=== PATIENT | male | born 1960 | race Caucasian/White ===

== ENCOUNTER → 2022-11-24 12:52 | Outpatient (BNVA) | payer SELFPAY | PROVIDERS: Family Provider Family Medicine; PCP Family Medicine; Visit Provider Nurse Practitioner Family | DX: M25.561 Pain in right knee (principal); M25.562 Pain in left knee; R60.0 Localized edema | CPT/HCPCS: 86038; 86140; 86618; 86666; 86757 ==

== ENCOUNTER 2024-10-28 16:30 | Emergency (ER) | payer MEDICAID, SELFPAY ==
[2024-10-28] VITALS (34 sets, daily range): BP systolic 103–144; BP diastolic 58–76; PULSE 93–122; RESP 15–38; TEMP 39.1; O2SAT 93–98; BMI 19.0
--- NOTE | 2024-10-28 16:39 | XRR_ITS ---
PROCEDURE INFORMATION: Exam: XR Chest Exam date and time: 10/28/2024 4:57 PM Age: 64 years old Clinical indication: Shortness of breath; Additional info: SOB, pneumonia, tachypneic TECHNIQUE: Imaging protocol: Radiologic exam of the chest. Views: 1 view. COMPARISON: No relevant prior studies available. FINDINGS: Lungs: There is dense consolidation of the entire upper half of the left lung with associated volume loss. There is mediastinal shift to the left. The right lung is clear. A 2 cm nodule is noted in the left lower lung field. Pleural spaces: Unremarkable. No pleural effusion. No pneumothorax. Heart/Mediastinum: See Lungs finding. Bones/joints: Unremarkable. XR/XR chest 1V portable [id number] IMPRESSION: Extensive left lung consolidation and atelectasis with separate lung nodule. Most likely represents lung neoplasm.
--- NOTE | 2024-10-28 16:46 | W.ED.SOB ---
Documented by User: CIERA Gong 10/28/24 16:50 HPI - SOB/Dyspnea General: Chief Complaint: Shortness of Breath/Dyspnea Stated Complaint: near syncope Time Seen by Provider: 10/28/24 16:31 Source: patient, family and EMS Mode of arrival: EMS Limitations: no limitations History of Present Illness: HPI Narrative: Patient is a 64-year-old male with extensive past medical history who presents to the Emergency Department via ambulance due to worsening shortness of breath and a reported presyncopal episode prior to arrival. Ambulance reportedly was called by patient's son. Patient arrives on 4 L of oxygen at this time, does not usually use oxygen at home. Reportedly a month ago was diagnosed with a bacterial pneumonia, it appears he was on doxycycline for this and notes that he has steadily gone downhill in terms of his breathing and weakness. States that he has been unable to bring a glass of water up to his mouth to take a drink due to the amount of weakness. At this time stating he feels much more comfortable as he is seated up, also has a history of congestive heart failure reportedly. He is not reporting any chest pain or coughing. EMS did report that he was hypotensive and tachycardic, they began line and started him on fluids and at bedside systolic blood pressure noted to be 100. Bedside temperature 102.2 at this time. Patient's family is on the way to the emergency department and will provide further history, as patient ultimately does not have full recollection of what happened today but believes he just got so weak that he was starting to fall. He does live at home by himself. elicited complaint: shortness of breath Pertinent past history: congestive heart failure Onset (ago): month(s) (1) Context: recent illness (Diagnosis of bacterial pneumonia) Timing: constant and progressively worsening Severity: severe Exacerbating factors: lying flat and exertion Relieving factors: oxygen Associated symptoms: Reports fever(s); Deny abdominal pain, chest pain, lightheadedness, nausea, palpitations or vomiting Treatment prior to arrival: oxygen and other (IV fluids) Related Data Previous Rx's ?Medication ?Instructions ?Recorded indomethacin 50 mg capsule 50 mg PO BID #30 caps 11/24/22 doxycycline hyclate 100 mg capsule 100 mg PO BID 14 days #28 caps 12/04/22 Allergies Allergy/AdvReac Type Severity Reaction Status Date / Time No Known Allergies Allergy Unverified 11/24/22 12:34 Review of Systems General: Reports: 10 or more systems reviewed and unremarkable except in HPI and below Const: Reports: fever(s); Denies: chills or fatigue Eyes: Denies: change in vision ENMT: Denies: throat pain, ear or mastoid pain or nasal discharge Card: Reports: pre-syncope; Denies: chest pain, palpitations, swelling of feet/ankles or lightheadedness Resp: Reports: dyspnea; Denies: productive cough or wheezing GI: Denies: abdominal pain, nausea, vomiting, diarrhea or constipation Musc: Denies: neck pain, back pain or joint pain Skin/Breast: Denies: rash Neuro: Reports: weakness in extremities; Denies: headache(s) or numbness in extremities PFSH ED PFSH: Medical History 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[place]as[place]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) Physical Exam Const: COMMON NORMALS: patient oriented x3, no limitations and alert GENERAL APPEARANCE: ill appearing NUTRITIONAL APPEARANCE: thin ORIENTATION/CONSCIOUSNESS: Yes awake OTHER: Mild respiratory distress at this time HENMT: COMMON NORMALS: normocephalic and atraumatic HEAD & SCALP: normocephalic and atraumatic OTHER: Dry oral mucosa Eye: COMMON NORMALS: Equal, round and reactive pupils present, EOMs intact bilaterally and conjunctivae normal CONJUNCTIVA: Yes conjunctivae normal PUPIL: Yes Equal, round and reactive pupils present Neck/C-Spine: COMMON NORMALS: full ROM and no JVD Chest: COMMONS NORMALS: normal inspection of the chest Resp: OTHER: Tachypneic, use of abdominal muscles. Rhonchi left lower lobe, diminished breath sounds throughout. Cardio: COMMON NORMALS: no JVD, regular rhythm, No gallops present (Cardio), No murmurs present (Cardio) and No rub (Cardio) RATE: tachycardic RHYTHM: regular rhythm GI: COMMON NORMALS: Normal to inspection, nondistended, normoactive bowel sounds present, Soft to palpation and non-tender PALPATION: Yes Soft to palpation Extremity: COMMON NORMALS: normal to inspection, full ROM, no clubbing, cyanosis or edema and no pedal edema Neuro: COMMON NORMALS: patient oriented x3, moves all extremities, no focal motor deficits and no sensory deficits noted SENSORIUM/ORIENTATION: Yes alert Skin: COMMON NORMALS: no rashes or lesions noted GENERAL SKIN EXAM: no rashes or lesions noted Course Vital Signs: Vital signs: Vital Signs Temperature 102.3 F H 10/28/24 16:31 Pulse Rate 108 H 10/28/24 19:09 Respiratory Rate 16 10/28/24 19:09 Blood Pressure 117/69 10/28/24 19:09 Pulse Oximetry 95 10/28/24 19:09 Oxygen Delivery Me thod Room Air 10/28/24 19:09 Oxygen Flow Rate 3 10/28/24 17:52 MDM - SOB/Dyspnea Lab Data 10/28/24 17:49 10/28/24 17:49 Labs/Radiology: Radiology Impressions Chest X-Ray 10/28/24 16:39 IMPRESSION: Extensive left lung consolidation and atelectasis with separate lung nodule. Most likely represents lung neoplasm. Chest/Abdomen/Pelvis CT 10/28/24 17:19 IMPRESSION: 1. Large left upper lobe lung mass measuring 13.1 ?? 9.0 ?? 25.4 cm with extension into the left perihilar region, encasement and near-complete occlusion of the left superior lobar bronchus, and involvement of the left anterior segmental artery. Findings are highly concerning for a primary lung neoplasm. 2. Multiple right lung nodules up to 1.1 cm and a posterior left lower lobe nodule measuring 1.7 cm, likely metastatic disease, including a satellite lesion. 3. Extensive mediastinal lymphadenopathy, including a 3.8 cm left paratracheal node appearing contiguous with the primary mass, 1.9 cm right paratracheal node, and prevascular nodes up to 1.1 cm. 4. Diffuse centrilobular emphysema. 5. Leftward mediastinal shift, likely due to mass effect from the dominant lung mass. 6. Small pericardial effusion. 7. No pulmonary embolism, pleural effusion, or pneumothorax. IMPRESSION: 1. Multiple hepatic metastatic lesions with the largest in segment 6 measuring 2.5 centimeters, and segment 4 measuring 2.4 centimeters. 2. Hepatomegaly. Laboratory Results WBC 16.94 10^3/uL (3.29-11.43) H 10/28/24 17:49 RBC 3.37 10^6/uL (3.85-5.65) L 10/28/24 17:49 Hgb 9.80 g/dL (11.27-16.99) L 10/28/24 17:49 Hct 31.4 % (37-53) L 10/28/24 17:49 MCV 93.2 fl (82-101) 10/28/24 17:49 MCH 29.1 pg (27-33) 10/28/24 17:49 MCHC 31.2 g/dL (30-55) 10/28/24 17:49 RDW 15.7 % (12.1-15.1) H 10/28/24 17:49 Plt Count 270 10^3/cmm (157-399) 10/28/24 17:49 MPV 9.0 fL (7.4-10.4) 10/28/24 17:49 Neut % (Auto) 83.7 % 10/28/24 17:49 Lymph % (Auto) 4.3 % 10/28/24 17:49 [place] % (Auto) 10.6 % 10/28/24 17:49 Eos % (Auto) 0.1 % 10/28/24 17:49 Baso % (Auto) 0.4 % 10/28/24 17:49 Neut # (Auto) 14.19 10^3/uL (1.8-7.7) H 10/28/24 17:49 Lymph # (Auto) 0.7 10^3/uL (0.8-4.8) L 10/28/24 17:49 [place] # (Auto) 1.8 10^3/uL (0.2-0.9) H 10/28/24 17:49 Eos # (Auto) 0.0 10^3/uL (0.0-0.8) 10/28/24 17:49 Baso # (Auto) 0.1 10^3/uL (0.0-0.1) 10/28/24 17:49 Nucleated RBC % (auto) 0 % 10/28/24 17:49 Nucleated RBCs # 0.0 /100WBC 10/28/24 17:49 Specimen Type Arterial 10/28/24 16:46 Sample Site Radial, left 10/28/24 16:46 ABG pH 7.46 (7.35-7.45) H 10/28/24 16:46 ABG pCO2 34.1 mmHg (35-45) L 10/28/24 16:46 ABG pO2 64.8 mmHg (80.0-100.0) L 10/28/24 16:46 ABG PO2/FiO2 Ratio 180 10/28/24 16:46 ABG HCO3 24.1 mmol/L (22-26) 10/28/24 16:46 ABG O2 Saturation 93.9 10/28/24 16:46 ABG Base Excess 0.5 mmol/L (-2.0-2.0) 10/28/24 16:46 Franco Test Pos 10/28/24 16:46 A-a O2 Gradient 19.0 mmHg (5-10) H 10/28/24 16:46 Hematocrit 32.0 % (42-52) L 10/28/24 16:46 Hgb O2 Saturation 91.0 % (95-100) L 10/28/24 16:46 Carboxyhemoglobin 2.4 %THgb (0.4-20.1) 10/28/24 16:46 Methemoglobin 0.6 % (0.4-1.5) 10/28/24 16:46 Total Hemoglobin 10.4 g/dL (14-18) L 10/28/24 16:46 Sodium 132.0 mmol/L (131-143) 10/28/24 16:46 Potassium 3.3 mmol/L (3.5-5.0) L 10/28/24 16:46 Glucose 197.0 mg/dL (70-115) H 10/28/24 16:46 Ionized Calcium 1.2 mmol/L (1.1-1.4) 10/28/24 16:46 O2 Delivery Device Nc 10/28/24 16:46 O2 Liters/Min 4.0 % 10/28/24 16:46 FiO2 36.0 % 10/28/24 16:46 Intensive Care Unit Nurse ID Cak 10/28/24 16:46 Sodium 131 mmol/L (136-145) L 10/28/24 17:49 Potassium 3.4 mmol/L (3.5-5.1) L 10/28/24 17:49 Chloride 98 mmol/L (98-107) 10/28/24 17:49 Carbon Dioxide 20 mmol/L (22-29) L 10/28/24 17:49 Anion Gap 16.4 (5-19) 10/28/24 17:49 BUN 12 mg/dL (8-23) 10/28/24 17:49 Creatinine 0.7 mg/dL (0.7-1.2) 10/28/24 17:49 GFR Calculation 113.9 mL/min (90-130) 10/28/24 17:49 Glucose 151 mg/dL (65-115) H 10/28/24 17:49 Calculated Osmolality 275 mOsm/kg (285-295) L 10/28/24 17:49 Lactic Acid 2.7 mmol/L (0.5-2.2) H 10/28/24 17:49 Calcium 7.9 mg/dL (8.5-10.5) L 10/28/24 17:49 Magnesium 1.5 mg/dL (1.7-2.3) L 10/28/24 17:49 Total Bilirubin 0.3 mg/dL (0.15-1.2) 10/28/24 17:49 AST 8 U/L (0-40) 10/28/24 17:49 ALT < 5 U/L (0-41) 10/28/24 17:49 Alkaline Phosphatase 83 U/L (40-130) 10/28/24 17:49 Troponin T Baseline 17 ng/L (0-15) H 10/28/24 17:49 NT-Pro-B Natriuret Pep 468 pg/mL (0-125) H 10/28/24 17:49 Total Protein 5.5 g/dL (6.6-8.7) L 10/28/24 17:49 Albumin 2.7 g/dL (3.5-5.2) L 10/28/24 17:49 Globulin 2.8 g/dL (1.3-4.6) 10/28/24 17:49 Procalcitonin 0.91 ng/mL (0-0.5) H 10/28/24 17:49 Adenovirus (PCR) Not detected (NOT DETECT) 10/28/24 17:15 C. pneumoniae DNA (PCR) Not detected (NOT DETECT) 10/28/24 17:15 Coronavirus 229E (PCR) Not detected (NOT DETECT) 10/28/24 17:15 Human Metapneumovir PCR Not detected (NOT DETECT) 10/28/24 17:15 Influenza A (H1) PCR Not detected (NOT DETECT) 10/28/24 17:15 Influ A (H1/09) PCR Not detected (NOT DETECT) 10/28/24 17:15 Influenza A (H3) PCR Not detected (NOT DETECT) 10/28/24 17:15 Influenza Type A (PCR) Not detected (NOT DETECT) 10/28/24 17:15 Influenza Type B (PCR) Not detected (NOT DETECT) 10/28/24 17:15 M. pneumoniae (PCR) Not detected (NOT DETECT) 10/28/24 17:15 Parainfluenza 1 (PCR) Not detected (NOT DETECT) 10/28/24 17:15 Parainfluenza 2 (PCR) Not detected (NOT DETECT) 10/28/24 17:15 Parainfluenza 3 (PCR) Not detected (NOT DETECT) 10/28/24 17:15 Parainfluenza 4 (PCR) Not detected (NOT DETECT) 10/28/24 17:15 RSV Type A (PCR) Not detected (NOT DETECT) 10/28/24 17:15 RSV Type B (PCR) Not detected (NOT DETECT) 10/28/24 17:15 Entero/Rhino (PCR) Not detected (NOT DETECT) 10/28/24 17:15 SARS-CoV-2 (PCR) Not detected (NOT DETECT) 10/28/24 17:15 Discharge Plan Discharge Patient Disposition: Xfer Short-Term Hosp Clinical Impression: Consolidation of left upper lobe of lung, Cigarette smoker, Unintended weight loss, Hemoptysis, Sepsis, Protein-calorie malnutrition, Hypomagnesemia, Mass of left lung, Cancer, metastatic to liver Condition: Stable Referrals: Taylor Macario DO [Primary Care Provider] - Print Language: Omani Coding Level of Care Code ED Caramel Cutter Hand for Bretg Fwd Documented by User: Roger Loyd MD 10/28/24 20:16 HPI - SOB/Dyspnea General: Chief Complaint: Shortness of Breath/Dyspnea Stated Complaint: near syncope Time Seen by Provider: 10/28/24 16:31 Related Data Previous Rx's ?Medication ?Instructions ?Recorded indomethacin 50 mg capsule 50 mg PO BID #30 caps 11/24/22 doxycycline hyclate 100 mg capsule 100 mg PO BID 14 days #28 caps 12/04/22 Allergies Allergy/AdvReac Type Severity Reaction Status Date / Time No Known Allergies Allergy Unverified 11/24/22 12:34 [facility] ED PFSH: Medical History RMSF ([place]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) Course Vital Signs: Vital signs: Vital Signs Temperature 102.3 F H 10/28/24 16:31 Pulse Rate 108 H 10/28/24 19:09 Respiratory Rate 16 10/28/24 19:09 Blood Pressure 117/69 10/28/24 19:09 Pulse Oximetry 95 10/28/24 19:09 Oxygen Delivery Me thod Room Air 10/28/24 19:09 Oxygen Flow Rate 3 10/28/24 17:52 MDM - SOB/Dyspnea Medical Decision Making Dr Loyd I have personally seen and evaluated the patient as well as spoken to family members. 64-year-old male presents with acute hypoxic respiratory failure, generalized weakness to the point where he could not walk, 60+ pound weight loss in the last 6 months, anorexia. Patient is a longtime smoker. He does not like going to the doctor. He has not had any previous treatment for this but says his respiratory status has been going downhill for a long time. He does not use any medications. Today he started coughing up blood. EKG: EP interp: Tachycardia, rate 111, abnormal P waves, possible ectopic pacemaker, left axis deviation, right bundle branch block, some discordant ST changes throughout the precordium. No STEMI. Patient appears malnourished and cachectic and he has some edema in his ankles and feet in a gravity dependent manner. His chest x-ray is very abnormal. He has what appears to be concerning nodules as well as a whiteout of the left upper lobe. I ordered a CTA of his chest as well as an abdomen and pelvis with contrast. Patient febrile and tachycardic with SIRS criteria. With a source of infection on chest x-ray, he meets sepsis criteria. 30 cc/kg of IV fluid was given primarily by 2 L of IV fluid that were hung prior to arrival. Antipyretics were given. A viral respiratory panel was negative. I have reviewed the patient's CT scan. His left upper lobe has a dense consolidation. His left upper lobe bronchus is lost quickly after its takeoff. There are spots of air throughout the left upper lung which may be trapped air or else air from a gas producing organism. I do not see any in large or medium size pulmonary emboli. Radiology overread is pending. We have a high degree of suspicion for neoplastic process given his smoking history, 6-month history of anorexia and weight loss, and what appears to be obliteration of the left upper lobe bronchial tube shortly after takeoff. Patient would benefit from pulmonology services which were not available here. I have reached out to [facility] for transfer. This was the patient's preference. The patient is a DNR based on our discussions today. He has assigned his mother as a DURABLE [employer] if necessary. I have done consultation with the transfer center at [facility]. 1949 Patient accepted to [facility] as a direct admit by Dr. Boothe. He will likely be transferred tomorrow morning. I have scheduled antibiotics, as needed pain meds, breathing treatments. Medical Records No recent records. Discussed with family. Lab Data I reviewed the patient's lab results. 10/28/24 17:49 10/28/24 17:49 Labs/Radiology: Radiology Impressions Chest X-Ray 10/28/24 16:39 IMPRESSION: Extensive left lung consolidation and atelectasis with separate lung nodule. Most likely represents lung neoplasm. Chest/Abdomen/Pelvis CT 10/28/24 17:19 IMPRESSION: 1. Large left upper lobe lung mass measuring 13.1 ?? 9.0 ?? 25.4 cm with extension into the left perihilar region, encasement and near-complete occlusion of the left superior lobar bronchus, and involvement of the left anterior segmental artery. Findings are highly concerning for a primary lung neoplasm. 2. Multiple right lung nodules up to 1.1 cm and a posterior left lower lobe nodule measuring 1.7 cm, likely metastatic disease, including a satellite lesion. 3. Extensive mediastinal lymphadenopathy, including a 3.8 cm left paratracheal node appearing contiguous with the primary mass, 1.9 cm right paratracheal node, and prevascular nodes up to 1.1 cm. 4. Diffuse centrilobular emphysema. 5. Leftward mediastinal shift, likely due to mass effect from the dominant lung mass. 6. Small pericardial effusion. 7. No pulmonary embolism, pleural effusion, or pneumothorax. IMPRESSION: 1. Multiple hepatic metastatic lesions with the largest in segment 6 measuring 2.5 centimeters, and segment 4 measuring 2.4 centimeters. 2. Hepatomegaly. Laboratory Results WBC 16.94 10^3/uL (3.29-11.43) H 10/28/24 17:49 RBC 3.37 10^6/uL (3.85-5.65) L 10/28/24 17:49 Hgb 9.80 g/dL (11.27-16.99) L 10/28/24 17:49 Hct 31.4 % (37-53) L 10/28/24 17:49 MCV 93.2 fl (82-101) 10/28/24 17:49 MCH 29.1 pg (27-33) 10/28/24 17:49 MCHC 31.2 g/dL (30-55) 10/28/24 17:49 RDW 15.7 % (12.1-15.1) H 10/28/24 17:49 Plt Count 270 10^3/cmm (157-399) 10/28/24 17:49 MPV 9.0 fL (7.4-10.4) 10/28/24 17:49 Neut % (Auto) 83.7 % 10/28/24 17:49 Lymph % (Auto) 4.3 % 10/28/24 17:49 [place] % (Auto) 10.6 % 10/28/24 17:49 Eos % (Auto) 0.1 % 10/28/24 17:49 Baso % (Auto) 0.4 % 10/28/24 17:49 Neut # (Auto) 14.19 10^3/uL (1.8-7.7) H 10/28/24 17:49 Lymph # (Auto) 0.7 10^3/uL (0.8-4.8) L 10/28/24 17:49 [place] # (Auto) 1.8 10^3/uL (0.2-0.9) H 10/28/24 17:49 Eos # (Auto) 0.0 10^3/uL (0.0-0.8) 10/28/24 17:49 Baso # (Auto) 0.1 10^3/uL (0.0-0.1) 10/28/24 17:49 Nucleated RBC % (auto) 0 % 10/28/24 17:49 Nucleated RBCs # 0.0 /100WBC 10/28/24 17:49 Specimen Type Arterial 10/28/24 16:46 Sample Site Radial, left 10/28/24 16:46 ABG pH 7.46 (7.35-7.45) H 10/28/24 16:46 ABG pCO2 34.1 mmHg (35-45) L 10/28/24 16:46 ABG pO2 64.8 mmHg (80.0-100.0) L 10/28/24 16:46 ABG PO2/FiO2 Ratio 180 10/28/24 16:46 ABG HCO3 24.1 mmol/L (22-26) 10/28/24 16:46 ABG O2 Saturation 93.9 10/28/24 16:46 ABG Base Excess 0.5 mmol/L (-2.0-2.0) 10/28/24 16:46 Franco Test Pos 10/28/24 16:46 A-a O2 Gradient 19.0 mmHg (5-10) H 10/28/24 16:46 Hematocrit 32.0 % (42-52) L 10/28/24 16:46 Hgb O2 Saturation 91.0 % (95-100) L 10/28/24 16:46 Carboxyhemoglobin 2.4 %THgb (0.4-20.1) 10/28/24 16:46 Methemoglobin 0.6 % (0.4-1.5) 10/28/24 16:46 Total Hemoglobin 10.4 g/dL (14-18) L 10/28/24 16:46 Sodium 132.0 mmol/L (131-143) 10/28/24 16:46 Potassium 3.3 mmol/L (3.5-5.0) L 10/28/24 16:46 Glucose 197.0 mg/dL (70-115) H 10/28/24 16:46 Ionized Calcium 1.2 mmol/L (1.1-1.4) 10/28/24 16:46 O2 Delivery Device Nc 10/28/24 16:46 O2 Liters/Min 4.0 % 10/28/24 16:46 FiO2 36.0 % 10/28/24 16:46 Intensive Care Unit Nurse ID Cak 10/28/24 16:46 Sodium 131 mmol/L (136-145) L 10/28/24 17:49 Potassium 3.4 mmol/L (3.5-5.1) L 10/28/24 17:49 Chloride 98 mmol/L (98-107) 10/28/24 17:49 Carbon Dioxide 20 mmol/L (22-29) L 10/28/24 17:49 Anion Gap 16.4 (5-19) 10/28/24 17:49 BUN 12 mg/dL (8-23) 10/28/24 17:49 Creatinine 0.7 mg/dL (0.7-1.2) 10/28/24 17:49 GFR Calculation 113.9 mL/min (90-130) 10/28/24 17:49 Glucose 151 mg/dL (65-115) H 10/28/24 17:49 Calculated Osmolality 275 mOsm/kg (285-295) L 10/28/24 17:49 Lactic Acid 2.7 mmol/L (0.5-2.2) H 10/28/24 17:49 Calcium 7.9 mg/dL (8.5-10.5) L 10/28/24 17:49 Magnesium 1.5 mg/dL (1.7-2.3) L 10/28/24 17:49 Total Bilirubin 0.3 mg/dL (0.15-1.2) 10/28/24 17:49 AST 8 U/L (0-40) 10/28/24 17:49 ALT < 5 U/L (0-41) 10/28/24 17:49 Alkaline Phosphatase 83 U/L (40-130) 10/28/24 17:49 Troponin T Baseline 17 ng/L (0-15) H 10/28/24 17:49 NT-Pro-B Natriuret Pep 468 pg/mL (0-125) H 10/28/24 17:49 Total Protein 5.5 g/dL (6.6-8.7) L 10/28/24 17:49 Albumin 2.7 g/dL (3.5-5.2) L 10/28/24 17:49 Globulin 2.8 g/dL (1.3-4.6) 10/28/24 17:49 Procalcitonin 0.91 ng/mL (0-0.5) H 10/28/24 17:49 Adenovirus (PCR) Not detected (NOT DETECT) 10/28/24 17:15 C. pneumoniae DNA (PCR) Not detected (NOT DETECT) 10/28/24 17:15 Coronavirus 229E (PCR) Not detected (NOT DETECT) 10/28/24 17:15 Human Metapneumovir PCR Not detected (NOT DETECT) 10/28/24 17:15 Influenza A (H1) PCR Not detected (NOT DETECT) 10/28/24 17:15 Influ A (H1/09) PCR Not detected (NOT DETECT) 10/28/24 17:15 Influenza A (H3) PCR Not detected (NOT DETECT) 10/28/24 17:15 Influenza Type A (PCR) Not detected (NOT DETECT) 10/28/24 17:15 Influenza Type B (PCR) Not detected (NOT DETECT) 10/28/24 17:15 M. pneumoniae (PCR) Not detected (NOT DETECT) 10/28/24 17:15 Parainfluenza 1 (PCR) Not detected (NOT DETECT) 10/28/24 17:15 Parainfluenza 2 (PCR) Not detected (NOT DETECT) 10/28/24 17:15 Parainfluenza 3 (PCR) Not detected (NOT DETECT) 10/28/24 17:15 Parainfluenza 4 (PCR) Not detected (NOT DETECT) 10/28/24 17:15 RSV Type A (PCR) Not detected (NOT DETECT) 10/28/24 17:15 RSV Type B (PCR) Not detected (NOT DETECT) 10/28/24 17:15 Entero/Rhino (PCR) Not detected (NOT DETECT) 10/28/24 17:15 SARS-CoV-2 (PCR) Not detected (NOT DETECT) 10/28/24 17:15 XR interpretation done by ED provider, pending radiology final review ABG Data ABG Interpretation 1: ABG results: Mild respiratory alkalosis suggesting hyperventilation. Hypoxemia confirmed. A-a gradient increased suggesting shunting. Carboxyhemoglobin 2.4. Critical Care Time Critical Care Time: Critical Care Time: Yes Total Critical Care Time: 45 Attestation: This case had a high probability of a clinically significant, sudden, or life threatening deterioration of this patient's condition which required my full and direct attention, intervention and personal management. Acute hypoxic respirator failure and sespsis. Discharge Plan Discharge Patient Disposition: Xfer Short-Term Hosp Clinical Impression: Consolidation of left upper lobe of lung, Cigarette smoker, Unintended weight loss, Hemoptysis, Sepsis, Protein-calorie malnutrition, Hypomagnesemia, Mass of left lung, Cancer, metastatic to liver Condition: Stable Referrals: Taylor Macario DO [Primary Care Provider] - Print Language: Omani Coding Level of Care Code ED Caramel Cutter Hand for [facility] [place]
[2024-10-28 16:57] LABS: ABG PCO2 34.1 mmHg (35-45); ABG PH Result 7.46 (7.35-7.45); Base Excess ABG 0.5 mmol/L (-2.0-2.0); Blood Gas Allen Test Pos; Blood Gas Operator Identificat CAK; Blood Gas Sample Site Radial, left; Blood Gas Sample Type Arterial; Carboxyhemoglobin 2.4 %THgb (0.4-20.1); HCO3 ABG 24.1 mmol/L (22-26); Ionized Calcium Level - ABG 1.2 mmol/L (1.1-1.4); Methemoglobin 0.6 % (0.4-1.5); Oxygen Device NC; Oxygen Saturation ABG 93.9; PO2 ABG 64.8 mmHg (80.0-100.0); PO2 FiO2 Ratio Arterial Blood 180; Potassium Level - ABG 3.3 mmol/L (3.5-5.0); Total Hemoglobin 10.4 g/dL (14-18)
--- NOTE | 2024-10-28 17:19 | CTR_ITS ---
PROCEDURE INFORMATION: Exam: CTA Chest With Contrast Exam date and time: 10/28/2024 7:03 PM Age: 64 years old Clinical indication: Other: N/a; Cough and fever and shortness of breath and other: Abnormal cxr/syncope; EMS arrival for syncopal episode. Patient has cough with SOB and fever. Recent history of pneumonia. Large left lung consolidation on cxr. ; Additional info: Abnl cxr, fever TECHNIQUE: Imaging protocol: Computed tomographic angiography of the chest with contrast. Exam focused on the arteries. 3D rendering (Not supervised by radiologist): MIP and/or 3D reconstructed images were created by the technologist. Radiation optimization: All CT scans at this facility use at least one of these dose optimization techniques: automated exposure control; mA and/or kV adjustment per patient size (includes targeted exams where dose is matched to clinical indication); or iterative reconstruction. Contrast material: OMNI 350; Contrast volume: 100 ml; Contrast route: INTRAVENOUS (IV); COMPARISON: CR (CHEST, ) 10/28/2024 4:57 PM RADIATION DOSE METRICS: Total DLP (mGy-cm): 600.55 FINDINGS: Pulmonary arteries: Normal. No pulmonary emboli. Aorta: Unremarkable. No aortic aneurysm. No aortic dissection. Lungs: Diffuse centrilobular emphysema. Multiple pulmonary nodules throughout the right hemithorax, measuring up to 1.1 cm, suspicious for metastatic disease. Large dominant mass in the left upper anterior lung measuring 13.1 ?? 9.0 ?? 25.4 cm, with extension into the left perihilar region, concerning for a primary lung neoplasm. The mass demonstrates encasement and near-complete occlusion of the left superior lobar bronchus and involves the left anterior segmental artery. Posterior left lower lobe nodule measuring 1.7 cm, likely a satellite metastatic lesion. Paratracheal lymphadenopathy measuring 1.9 in the right side, and 3.8 in the left side., the left paratracheal lymphadenopathy appears to be continuous with the left upper lung mass. Pleural spaces: Unremarkable. No pneumothorax. No pleural effusion. Heart: Small pericardial effusion is present. Mediastinal space: There is leftward mediastinal shift. Lymph nodes: Enlarged prevascular lymph nodes measuring up to 1.1 centimeters Bones/joints: Unremarkable. No acute fracture. Soft tissues: Unremarkable. PROCEDURE INFORMATION: Exam: CT Abdomen And Pelvis With Contrast Exam date and time: 10/28/2024 7:03 PM Age: 64 years old Clinical indication: Other: N/a; Cough and fever and shortness of breath and other: Abnormal cxr/syncope; EMS arrival for syncopal episode. Patient has cough with SOB and fever. Recent history of pneumonia. Large left lung consolidation on cxr. ; Additional info: Abnl cxr, fever TECHNIQUE: Imaging protocol: Computed tomography of the abdomen and pelvis with contrast. Radiation optimization: All CT scans at this facility use at least one of these dose optimization techniques: automated exposure control; mA and/or kV adjustment per patient size (includes targeted exams where dose is matched to clinical indication); or iterative reconstruction. Contrast material: OMNI 350; Contrast volume: 100 ml; Contrast route: INTRAVENOUS (IV); COMPARISON: CR (CHEST, ) 10/28/2024 4:57 PM RADIATION DOSE METRICS: Total DLP (mGy-cm): 600.55 FINDINGS: Liver: Hypoenhancing right hepatic segment 6 lesion measuring 2.5 centimeters, segment 4B hypoenhancing lesion measuring 2.4 centimeters, right hepatic dome 1.4 centimeters hypoenhancing lesion concerning for hepatic metastases. Hepatomegaly with the liver measuring 20.1 centimeters Gallbladder and biliary ducts: Normal. No calcified stones. No ductal dilation. Pancreas: Normal. No ductal dilation. Spleen: Normal. No splenomegaly. Adrenal glands: Normal. No mass. Kidneys and ureters: Normal. No hydronephrosis. Stomach and bowel: Unremarkable. No obstruction. No mucosal thickening. Appendix: No evidence of appendicitis. Intraperitoneal space: Unremarkable. No free air. No significant fluid collection. Vasculature: Micro aortic calcifications Lymph nodes: Unremarkable. No enlarged lymph nodes. Urinary bladder: Unremarkable as visualized. Reproductive: Unremarkable as visualized. Bones/joints: Unremarkable. No acute fracture. Soft tissues: Unremarkable. CT/CT angio chest w abd pel w con IMPRESSION: 1. Large left upper lobe lung mass measuring 13.1 ?? 9.0 ?? 25.4 cm with extension into the left perihilar region, encasement and near-complete occlusion of the left superior lobar bronchus, and involvement of the left anterior segmental artery. Findings are highly concerning for a primary lung neoplasm. 2. Multiple right lung nodules up to 1.1 cm and a posterior left lower lobe nodule measuring 1.7 cm, likely metastatic disease, including a satellite lesion. 3. Extensive mediastinal lymphadenopathy, including a 3.8 cm left paratracheal node appearing contiguous with the primary mass, 1.9 cm right paratracheal node, and prevascular nodes up to 1.1 cm. 4. Diffuse centrilobular emphysema. 5. Leftward mediastinal shift, likely due to mass effect from the dominant lung mass. 6. Small pericardial effusion. 7. No pulmonary embolism, pleural effusion, or pneumothorax. IMPRESSION: 1. Multiple hepatic metastatic lesions with the largest in segment 6 measuring 2.5 centimeters, and segment 4 measuring 2.4 centimeters. 2. Hepatomegaly.
[2024-10-28] MEDS: sodium chloride 0.9% 1,000 ML 999 ML IV (17:21)
[2024-10-28] MEDS: acetaminophen 500 mg Tablet 1000 MG PO (17:21)
[2024-10-28] MEDS: ipratropium-albuterol 3 mL Neb INHALATION (17:51)
[2024-10-28 18:04] LABS: Basophils # 0.1 10^3/uL (0.0-0.1); Basophils % 0.4 %; Eosinophils % 0.1 %; Hematocrit 31.4 % (37-53); Lymphocytes # 0.7 10^3/uL (0.8-4.8); Lymphocytes % 4.3 %; Mean Corpuscular HGB Conc 31.2 g/dL (30-55); Mean Corpuscular Hemoglobin 29.1 pg (27-33); Mean Corpuscular Volume 93.2 fl (82-101); Monocytes # 1.8 10^3/uL (0.2-0.9); Monocytes % 10.6 %; Neutrophils # 14.19 10^3/uL (1.8-7.7); Neutrophils % 83.7 %; Nucleated Red Blood Cells % 0 %; Platelet Count 270 10^3/cmm (157-399); Red Blood Count 3.37 10^6/uL (3.85-5.65); Red Cell Distribution Width 15.7 % (12.1-15.1); White Blood Count 16.94 10^3/uL (3.29-11.43)
[2024-10-28] MEDS: cefTRIAXone 2,000 mg SDV 2000 MG IVP (18:24)
[2024-10-28 18:25] LABS: Lactic Sepsis W/Reflex 2.7 mmol/L (0.5-2.2)
[2024-10-28] MEDS: doxycycline 100 MG in sodium chloride 0.9% (plus) 100 ML IV (18:25)
[2024-10-28] MEDS: methylPREDNISolone sod succ 125 mg/2 mL INJ IVP (18:25)
[2024-10-28 18:26] LABS: Troponin(5th) Baseline 17 ng/L (0-15)
[2024-10-28 18:29] LABS: Reflex Lactate Order REFLEX LACTIC ORDERD
--- NOTE | 2024-10-28 18:29 | ECG_ITS ---
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 Measurements Intervals Mathews Rate: 111 P: 147 OH: 153 QRS: -39 QRSD: 153 T: 101 QT: 365 QTc: 497 Interpretive Statements ECTOPIC ATRIAL TACHYCARDIA POSSIBLE LEFT ATRIAL ENLARGEMENT [-0.1mV P-WAVE IN V1/V2] LEFT AXIS DEVIATION [QRS AXIS < -30] RIGHT BUNDLE BRANCH BLOCK [120+ ms QRS DURATION, UPRIGHT V1, 40+ ms S IN I/aVL/V4/V5/V6] POSSIBLE SEPTAL MYOCARDIAL INFARCTION , OF INDETERMINATE AGE [30 ms Q WAVE IN V1/V2] Compared to ECG 09/23/2015 19:00:26 Left-axis deviation now present Myocardial infarct finding now present Sinus rhythm no longer present Right-axis deviation no longer present Electronically Signed On 10-31-2024 20:02:00 CDT by Fracisco Bonner M.D. [email or web address]
[2024-10-28 18:33] LABS: NT Pro B Type Natriuretic Pept 468 pg/mL (0-125); Procalcitonin 0.91 ng/mL (0-0.5)
[2024-10-28 18:44] LABS: Alanine Aminotransferase < 5 U/L (0-41); Albumin Level 2.7 g/dL (3.5-5.2); Alkaline Phosphatase 83 U/L (40-130); Anion Gap 16.4 (5-19); Aspartate Amino Transferase 8 U/L (0-40); Blood Urea Nitrogen 12 mg/dL (8-23); Calcium 7.9 mg/dL (8.5-10.5); Carbon Dioxide 20 mmol/L (22-29); Chloride 98 mmol/L (98-107); Creatinine Clr Calc Pharmacy 97.0185; Globulin 2.8 g/dL (1.3-4.6); Glomerular Filtration Rate 113.9 mL/min (90-130); Glucose 151 mg/dL (65-115); Magnesium 1.5 mg/dL (1.7-2.3); Osmolality Calculated 275 mOsm/kg (285-295); Potassium 3.4 mmol/L (3.5-5.1); Sodium 131 mmol/L (136-145); Total Bilirubin 0.3 mg/dL (0.15-1.2); Total Protein 5.5 g/dL (6.6-8.7)
[2024-10-28] MEDS: iohexol 350 mg/mL 500 mL Btl (per mL) IV (19:08)
[2024-10-28 19:12] LABS: Adenovirus Not Detected (NOT DETECT); Chlamydia Pneumoniae Not Detected (NOT DETECT); Coronavirus 229E,HKU1,NL63,OC4 Not Detected (NOT DETECT); Human Metapneumovirus Not Detected (NOT DETECT); Human Rhinovirus/Enterovirus Not Detected (NOT DETECT); Influenza A Not Detected (NOT DETECT); Influenza A H1 Not Detected (NOT DETECT); Influenza A H1-2009 Not Detected (NOT DETECT); Influenza A H3 Not Detected (NOT DETECT); Influenza B Not Detected (NOT DETECT); Mycoplasma Pneumoniae Not Detected (NOT DETECT); Parainfluenza Virus Type 1 Not Detected (NOT DETECT); Parainfluenza Virus Type 2 Not Detected (NOT DETECT); Parainfluenza Virus Type 3 Not Detected (NOT DETECT); Parainfluenza Virus Type 4 Not Detected (NOT DETECT); Respiratory Syncytial Virus A Not Detected (NOT DETECT); Respiratory Syncytial Virus B Not Detected (NOT DETECT); SARS-COV-2 Not Detected (NOT DETECT)
[2024-10-28] MEDS: magnesium sulfate premix 2 GM/50 ML PIGGYBACK IV (20:09)
[2024-10-28 20:38] LABS: Troponin 5 2HR 16.23 ng/L (0-15)
[2024-10-28 20:39] LABS: Lactic Acid level (Lactate) 1.2 mmol/L (0.5-2.2); Troponin 5 2HR Delta -0.77 ABS# (0-10)
[2024-10-28] MEDS: potassium bicarb 25 mEq Tablet PO (21:28)
[2024-10-28] MEDS: acetaminophen 325 mg Tablet PO (21:29)
[2024-10-28] MEDS: sodium chloride 0.9% 1,000 ML 75 ML IV (21:31)
--- NOTE | 2024-10-28 22:39 | ECG_ITS ---
[facility] Date: 2024-10-29 Pat Name: Josh Herrera Department: Room: Gender: Male Rod Buster: : 1960 Requested By: Lorne Rivers Order Number: [id number] Krista MD: Fracisco Bonner M.D. Measurements Intervals Maribel Rate: 88 P: 151 NM: 167 QRS: -35 QRSD: 163 T: 113 QT: 409 QTc: 497 Interpretive Statements ECTOPIC ATRIAL RHYTHM LEFT AXIS DEVIATION [QRS AXIS < -30] RIGHT BUNDLE BRANCH BLOCK [120+ ms QRS DURATION, UPRIGHT V1, 40+ ms S IN I/aVL/V4/V5/V6] PROBABLE ANTEROSEPTAL MYOCARDIAL INFARCTION , OF INDETERMINATE AGE [35 ms Q WAVE IN V1-V4] Compared to ECG 10/28/2024 18:29:41 Ectopic atrial rhythm now present Myocardial infarct finding still present Electronically Signed On 10-31-2024 19:58:53 CDT by Fracisco Bonner M.D. [email or web address]
[2024-10-29] VITALS (116 sets, daily range): BP systolic 125–149; BP diastolic 69–94; PULSE 79–114; RESP 11–27; TEMP 36.4; O2SAT 88–100
[2024-10-29 00:08] LABS: Troponin 5 6HR 13.44 ng/L (0-15); Troponin 5 6HR Delta -3.56 ng/L (0-12)
[2024-10-29] MEDS: acetaminophen 325 mg Tablet PO (02:27)
[2024-10-29] MEDS: ipratropium-albuterol 3 mL Neb INHALATION ×2 (02:30→09:43)
[2024-10-29 02:42] LABS: Bilirubin Urine Negative (Negative); Blood Urine 2+ (Negative); Glucose Urine UA Negative (Normal); Ketones Urine Negative (Negative); Leukocyte Esterase Urine Negative (Negative); Nitrate Urine Negative (Negative); Protein Urine Trace (Negative); Urine Appearance Clear (CLEAR); Urine Color Yellow (Yellow); Urobilinogen Urine 0.2 mg/dL (Negative)
[2024-10-29 02:47] LABS: Add Urine Microscopic? YES; Bacteria Urine None Seen /hpf; RBC Urine 21-50 /hpf (0-2); Squamous Epithelial Cell Urine 0-5 /hpf (0-5); WBC Urine 0-5 /hpf (0-5)
[2024-10-29 02:53] LABS: Add Urine Culture? Yes; Specific Gravity, Urine 1.047 (1.005-1.030)
[2024-10-29] MEDS: doxycycline 100 MG in sodium chloride 0.9% (plus) 100 ML IV (06:15)
--- NOTE | 2024-10-29 06:53 | PC.NURSE ---
PT is agitated and refusing to have help over to the bedside commode. PT offered help multiple times while trying to transfer over from the bed to the commode and has refused help.
--- NOTE | 2024-10-29 06:59 | PC.NURSE ---
Pt started on doxycycline at 0620 pt called out stating that the medication was hurting his arm. medication was moved to alternate IV site and pt continued to state the medication was hurting his other arm. pt states there were air bubbles in IV tubing and that we were trying to kill him . pt states he wants to get the hell out of here right now . Dr June made aware of pt preferance to leave AMA and went to bed side to talk to pt. Pt states he still wants to leave now. family for pt called and informed of pt desire to leave, family requests we hold the discharge untill they are able to speak with them, pt refuses to talk on the phone. family on the way to speak with him now.
--- NOTE | 2024-10-29 07:18 | PC.NURSE ---
PT REFUSED ORDERED ROCEPHIN AND TYLENOL. THIS NURSE EDUCATED PT ON THE NEED FOR THE ANTIBIOTIC. PT CONTINUED TO STATE NO, YOU'RE NOT GIVING ME ANYTHING ELSE. LAST TIME THEY GAVE ME AN ANTIBIOTIC IT BURNED MY ARM AND HAD A BUNCH OF AIR BUBBLES IN IT. NO MORE MEDICATIONS. THIS NURSE INFORMED PT THAT THIS TYPE OF ANTIBIOTIC WAS IV PUSH, SO THE NURSE WOULD MANUALLY PUSH THE MEDICATION OVER 5 MINUTES. PT STILL REFUSED MEDICATIONS AND STATED I JUST WANT TO GO HOME. I DID NOT EVEN CALL YOU GUYS. THIS NURSE VERBALIZED UNDERSTANDING AND INFORMED PT THAT WE COULDN'T LET HIM LEAVE UNTIL HIS RIDE IS HERE. PT VERBALIZED UNDERSTANDING. DR. RAMIREZ NOTIFIED.
--- NOTE | 2024-10-29 08:12 | PC.NURSE ---
PT WAS NOTIFIED OF HAVING ACCEPTANCE AND A BED AT [facility]. PT STATED THERE AIN'T NO FUCKING WAY I AM GOING. I AM GOING HOME. THIS NURSE VERBALIZED UNDERSTANDING. DR. RAMIREZ NOTIFIED.
--- NOTE | 2024-10-29 08:13 | PC.PHAR ---
Patient gets his medication from [facility] Patient had bottles in a bag with him in the room . Most bottles are full. He had 3 bottles of Gabapentin ,3 bottles of tylenol , and 3 Asmanex HFA inhalers. Patient states he took all his medications on Tuesday morning. He did have a pill box for the month and it looks like patient has skipped days.
--- NOTE | 2024-10-29 08:50 | PC.NURSE ---
STRATEGIC PLANNING CONSULTANT NOTIFIED THIS NURSE THAT PT STATED HE HAD A BOWEL MOVEMENT IN HIS PANTS. STRATEGIC PLANNING CONSULTANT, NENITA, STATED SHE OFFERED TO HELP PT GET CLEANED UP. PT REFUSED TO LET STRATEGIC PLANNING CONSULTANT CLEAN PT UP. PT STATED TO STRATEGIC PLANNING CONSULTANT, NO I WILL JUST WAIT UNTIL I GET HOME. STRATEGIC PLANNING CONSULTANT NOTIFIED THIS NURSE OF ENCOUNTER.
--- NOTE | 2024-10-29 09:19 | PC.NURSE ---
PT REQUESTED TO GET UP TO THE BEDSIDE COMMODE. THIS NURSE ASSISTED PT UP TO THE BEDSIDE COMMODE BUT PT REFUSED TO TAKE OFF HIS PANTS IN THE PRESENCE OF THIS NURSE. THIS NURSE EDUCATED PT THAT SHE DID NOT WANT HIM TO FALL WITHOUT HER IN THE ROOM. PT REFUSED TO LET THIS NURSE ASSIST ANY FURTHER.
--- NOTE | 2024-10-29 09:33 | PC.NURSE ---
FAMILY AT BEDSIDE. PT STILL REQUESTING TO LEAVE. DR. RAMIREZ NOTIFIED THAT FAMILY IS IN ROOM.
--- NOTE | 2024-10-29 10:09 | PC.NURSE ---
DR. RAMIREZ EDUCATED PT AND FAMILY ON THE RISKS OF NOT BEING TRANSFERRED TO [facility] FOR A PULMONOLOGY CONSULT. PT VERBALIZED UNDERSTANDING. PT WISHED TO NOT BE ADMITTED ANYWHERE AND TO JUST GO HOME. OPTIONS WERE DISCUSSED WITH PT BY DR. RAMIREZ.
== END 2024-10-29 12:33 | disposition home or self-care (01) ==
PROVIDERS: Physician Assistant; Emergency Provider Family Medicine; Family Provider Family Medicine; PCP Family Medicine
DX: J18.1 Lobar pneumonia, unspecified organism (principal); R63.4 Abnormal weight loss; F17.210 Nicotine dependence, cigarettes, uncomplicated; R04.2 Hemoptysis; A41.9 Sepsis, unspecified organism; E46 Unspecified protein-calorie malnutrition; E83.42 Hypomagnesemia; R91.8 Other nonspecific abnormal finding of lung field; C78.7 Secondary malignant neoplasm of liver and intrahepatic bile duct; Z11.52 Encounter for screening for COVID-19
CPT/HCPCS: 36415; 36600; 71045; 71275; 74177; 80051; 80053; 81001; 82330; 82805; 83605; 83735; 83880; 84145; 84484; 85025; 87040; 87086; 87486; 87581; 87633; 93005; 94640; 94760; 96365; 96375; 99285; J0696; J2919; J3475; J3490; J7030; J9999